=== PATIENT | male | born 1990 | race Two or more races ===

== ENCOUNTER 2023-04-12 13:23 | Emergency (ER) | payer MEDICAID ==
[~2023-04-12] VITALS: Ht 175.3 cm; Wt 133.3 kg
[2023-04-12 14:31] LABS: Basophils # (auto) 0 10 ^3/uL (0-0.2); Basophils % (auto) 0.4 % (0.0-2.0); Eosinophils # (auto) 0.1 10 ^3/uL (0-0.8); Eosinophils % (auto) 0.9 % (0.0-7.0); Hematocrit 47.7 % (41.0-53.0); Hemoglobin 15.8 g/dL (13.5-17.5); Lymphocytes # (auto) 2.3 10 ^3/uL (0.4-5.4); Lymphocytes % (auto) 35.7 % (10.0-50.0); Mean Corpuscular Hemoglobin 30.6 pg (28.0-32.0); Mean Corpuscular Hgb Conc. 33.2 g/dL (32.0-36.0); Mean Corpuscular Volume 92.1 fL (80.0-100.0); Monocytes # (auto) 0.6 10 ^3/uL (0-1.3); Monocytes % (auto) 9.7 % (0.0-12.0); Neutrophils # (auto) 3.4 10 ^3/uL (1.6-8.6); Neutrophils % (auto) 53.3 % (37.0-80.0); Nucleated Red Blood Cells % 0.6 %; Red Blood Cells 5.18 10^6/uL (4.5-5.90); Red Cell Distribution Width 13.4 % (11.8-14.3); White Blood Cell 6.4 10^3/uL (4.4-10.8)
[2023-04-12 15:05] LABS: Albumin 4.3 g/dL (3.4-5.0); Calcium 9.3 mg/dL (8.5-10.1); Potassium 3.9 mmol/L (3.5-5.1)
[2023-04-12 15:09] LABS: BUN/Creatinine Ratio 18.5 (10.0-20.0); Bilirubin, Total 0.5 mg/dL (0.2-1.0)
[2023-04-12] MEDS ORDERED: PANT40TA2 PO (15:59)
[2023-04-12 16:15] VITALS: BP 127/71
== END 2023-04-12 16:18 | disposition home or self-care (01) ==
LOC: ER 13:23
DX: K76.0 Fatty (change of) liver, not elsewhere classified (principal)
CPT/HCPCS: 36415; 76705; 80053; 83690; 85025

== ENCOUNTER → 2023-09-11 | Emergency (ER) | payer MEDICAID ==
[~2023-09-11] MED LIST: PANT40TA2 PO
== END | disposition left against medical advice (07) ==
LOC: ER 09:09
DX: M25.532 Pain in left wrist (principal); Z53.21 Procedure and treatment not carried out due to patient leaving prior to being seen by health care provider
CPT/HCPCS: 73110